=== PATIENT | male | born 1955 | race Two or more races ===

== ENCOUNTER 2024-08-14 02:56 | Emergency (ER) | payer MEDICARE, SELFPAY ==
[2024-08-14 02:58] VITALS: BP 132/77; PULSE 56; RESP 17; TEMP 36.7; O2SAT 96; BMI 31.2
--- NOTE | 2024-08-14 03:05 | EKG_ITS ---
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
--- NOTE | 2024-08-14 03:22 | XR_ITS ---
Examination: PA chest single view TECHNIQUE: Upright PA chest single view Date and time: 11/14/2024 0536 hours INDICATIONS: Shortness of breath today. FINDINGS: Normal heart size No pneumonia or pulmonary edema Epidural pain leads IMPRESSION: No active disease
--- NOTE | 2024-08-14 03:24 | PD.EDSOB ---
ED SOB =RME/HPI General Chief Complaint: Shortness of Breath/Dyspnea Stated Complaint: DIFF BREATHING Time Seen by Provider: 08/14/24 03:22 Arrival date/time: 08/14/24 02:56 68M with history of anxiety and BPH presents to ED with 2 days of intermittent CP and SOB. Patient denies URI symptoms. Patient has no current symptoms. Limitations: no limitations Related Data Home Medications ?Medication ?Instructions ?Recorded ?Confirmed Cetirizine HCl (Allergy Relief) 10 mg PO QDAY ##0 05/24/15 03/13/19 Fluticasone Propionate NASAL * 1 spry NASAL BID #0 spry 05/24/15 03/13/19 (FLONASE *) finasteride 5 mg tablet (Proscar) 5 mg PO QDAY #0 tabs 05/24/15 03/13/19 pentosan polysulfate sodium 100 mg 100 mg PO TID #0 caps 05/24/15 03/13/19 capsule (Elmiron) tamsulosin 0.4 mg capsule (Flomax) 0.4 mg PO QDAY ##0 05/24/15 03/13/19 tramadol 50 mg tablet (Ultram) 50 mg PO Q4HR PRN PAIN #0 tabs 05/24/15 03/13/19 Fish Oil (OTC) * 1 cap PO QDAY #0 caps 05/25/15 03/13/19 MANUP 1 tab PO QDAY ##0 05/25/15 03/13/19 cholecalciferol (vitamin D3) 50 2,000 unit PO QDAY #0 caps 05/25/15 03/13/19 mcg (2,000 unit) capsule (Vitamin D3) Previous Rx's ?Medication ?Instructions ?Recorded lorazepam 1 mg tablet (Ativan) 1 mg PO BID PRN anxiety #20 tabs 03/13/19 diclofenac sodium 75 mg 75 mg PO BID PRN pain #60 tabs 02/19/21 tablet,delayed release meloxicam 7.5 mg tablet 7.5 mg PO QDAY #10 tabs 09/20/21 Allergies Allergy/AdvReac Type Severity Reaction Status Date / Time No Known Allergies Allergy Verified 09/20/21 09:40 Review of Systems Review of Systems Systems Reviewed: All systems reviewed, normal except as documented Constitutional Constitutional: Reports system reviewed and no additional complaints, except as documented, Denies fever(s) and Denies headache(s) ENT Ears, Nose, Mouth, and Throat: Denies disequilibrium and Denies headache(s) Cardiovascular Cardiovascular: Reports system reviewed and no additional complaints, except as documented, Reports as per HPI, Reports chest pain and Reports dyspnea Respiratory Respiratory: Reports system reviewed and no additional complaints, except as documented, Denies cough and Reports dyspnea Gastrointestinal Gastrointestinal: Reports system reviewed and no additional complaints, except as documented, Denies abdominal pain, Denies nausea and Denies vomiting Neurologic Neurologic: Reports system reviewed and no additional complaints, except as documented, Denies confusion, Denies disequilibrium and Denies headache(s) Psychiatric Psychiatric: Denies confusion Past Medical History Past Medical History CARDIAC: Negative Congestive Heart Failure RESPIRATORY: Negative Chronic Obstructive Pulmonary Disease (COPD) GENITOURINARY: Positive Benign Prostatic Hyperplasia; Negative Renal Disease ENDOCRINE: Negative Diabetes Mellitus Type 1 or Diabetes Mellitus Type 2 PSYCHO/SOCIAL: Positive Anxiety Social History SMOKING STATUS: Never smoker SUBSTANCE USE: does not use ED Exam General Limitations: Present no limitations General appearance: Present alert, in no apparent distress and anxious Head Head exam: Present atraumatic Eye Eye exam: Present normal appearance, PERRL and EOMI ENT ENT exam: Present normal exam, normal oropharynx and mucous membranes moist Neck Neck exam: Present normal inspection, full ROM and trachea midline Chest Chest inspection: Present normal inspection and symmetric chest wall rise Respiratory Respiratory exam: Present normal lung sounds bilaterally Cardiovascular Cardiovascular exam: Present regular rate, normal rhythm and normal heart sounds Abdominal Exam Abdominal exam: Present soft and normal bowel sounds Extremities Exam Extremities exam: Present normal inspection and full ROM Back Exam Back exam: Present normal inspection and full ROM Neurological Exam Neurological exam: Present alert, oriented X3 and CN II-XII intact Psychiatric Psychiatric exam: Present normal affect and normal mood Skin Skin exam: Present warm, dry, intact and normal color Course Quality Measures none Orders Category Date Time Status EKG (ED ONLY) *Do not use* NOW Care 08/14/24 03:05 Completed EKG (ED Only) Stat Exams 08/14/24 03:05 Draft XR chest 1V portable Stat Exams 08/14/24 03:22 Taken B-Type Natriuretic Peptide Stat Lab 08/14/24 03:39 Completed CBC Stat Lab 08/14/24 03:39 Completed Comprehensive Metabolic Panel Stat Lab 08/14/24 03:39 Completed Troponin I Stat Lab 08/14/24 03:39 Completed Vital Signs Vital signs: Vital Signs Temperature 98.0 F 08/14/24 02:58 Pulse Rate 56 L 08/14/24 02:58 Respiratory Rate 17 08/14/24 02:58 Blood Pressure 132/77 H 08/14/24 02:58 Pulse Oximetry (%) 96 08/14/24 02:58 Oxygen Delivery Method Room Air 08/14/24 02:58 O2 at 96% on RA and WNLs Shortness of Breath / Dyspnea MDM Narrative MDM Narrative:: 68M with history of anxiety and BPH presents to ED with 2 days of intermittent CP and SOB. Patient denies URI symptoms. Patient has no current symptoms. Physical exam reveals clear lungs. Normal WOB. RRR. Patient is afebrile, alert, but anxious. EKG is sinus aron of 57, which is consistent with previous EKG. Trop normal. BNP normal. No leukocytosis. CMP unremarkable. Wet CXR read unremarkable except for what appears to be ashley in the esophagus, pending official report. This anomaly was not seen on CXR from 2 years ago. Patient denies any procedure/surgery. states possibly done for high cholesterol, but she's not sure. Return Agent [place] given. Symptoms likely due to anxiety. Patient data External records reviewed:: [facility] previous records Clinical information provided by:: patient Social determinants that could affect healthcare access:: mental health Patient has the following chronic illnesses:: anxiety and BPH How is presenting disease/condition affected by chronic disease/condition?: exacerbated by Evaluation data The following diagnostics were reviewed and interpreted by me:: lab results, radiology exam(s) and EKG tracing(s) Lab and/or radiology exams considered but not ordered:: ordered Interpretation Summary: above Medications / Prescriptions Medications or Prescriptions considered but not ordered:: not ordered Medication administrations:: n/a Consultations Consultation(s) initiated? (list below): No Diagnosis Shortness of Breath Differential Diagnosis: acute exacerbation of chronic obstructive airways disease, congestive heart failure, community acquired pneumonia, asthma with exacerbation, pulmonary embolism and other (anxiety) Most likely diagnosis given after review of the tests above:: anxiety Admission Indicated Admission indicated?: not indicated Admission Request Was there a request for admission?: No Disposition Plan Disposition Plan: Discharge Discharge Attestation Discharge Attestation: The patient and all family members were given an opportunity to ask questions and understood the discharge instructions. Discharge instructions specifically effects, indications for sooner follow up or return to the emergency department, and the expected course of current diagnosis. Patient condition: Stable Discharge Plan Plan Patient Disposition: HOME (Self Care) Discharge Disposition comment: Stable Prescriptions/Referrals Prescriptions/Med Rec: No Action Elmiron 100 MG capsule 100 mg PO TID Qty: 0 tramadol [Ultram] 50 MG tablet 50 mg PO Q4HR PRN (Reason: PAIN) Qty: 0 Patient Comments: FOR PAIN, NOT TO EXCEED 8 TABS IN 24 HRS tamsulosin [Flomax] 0.4 MG capsule,extended release 24hr 0.4 mg PO QDAY Qty: 0 finasteride [Proscar] 5 MG tablet 5 mg PO QDAY Qty: 0 Cetirizine HCl (Allergy Relief) 10 MG capsule 10 mg PO QDAY Qty: 0 Fluticasone Propionate NASAL * (FLONASE *) 160 SPRAY/BTL SPRAY 1 spry NASAL BID Qty: 0 cholecalciferol (vitamin D3) [Vitamin D3] 2,000 UNIT capsule 2,000 unit PO QDAY Qty: 0 Fish Oil (OTC) * 1 CAP capsule 1 cap PO QDAY Qty: 0 MANUP 1 tab PO QDAY Qty: 0 diclofenac sodium 75 mg tablet,delayed release (DR/EC) 75 mg PO BID PRN (Reason: pain) Qty: 60 0RF lorazepam [Ativan] 1 mg tablet 1 mg PO BID PRN (Reason: anxiety) Qty: 20 0RF meloxicam 7.5 mg tablet 7.5 mg PO QDAY Qty: 10 0RF Referrals: Tayo Virk [Primary Care Provider] - In 1 week Problem List Clinical Impression: Anxiety Patient/Caregiver Discharge Instructions Education Materials: Your Body's Response to Anxiety Additional Instructions: Please follow-up with PCP within 24-48 hours and return immediately if symptoms worsen. Print Language: Urdu Stand Alone Forms: Patient Portal Info Letter EYAD/LESLIE Supervising Physician EYAD/LESLIE Supervising Physician: Dr. Martínez
[2024-08-14 03:52] LABS: Basophils # (Auto) 0.1 Thou/mm3 (0.0-0.2); Basophils % (Auto) 1 % (0-2.5); Eosinophils # (Auto) 0.2 Thou/mm3 (0.0-0.5); Eosinophils % (Auto) 4 % (0-10); Hematocrit 40.7 % (41.0-53.0); Hemoglobin 14.4 g/dL (13.5-16.0); Immature Granulocytes % (Auto) 0 % (0-0); Immature Granulocytes Auto 0.01 Thou/mm3 (0.00-0.00); Lymphocytes # (Auto) 2.3 Thou/mm3 (1.0-4.8); Lymphocytes % (Auto) 41 % (10-50); Mean Corpuscular HGB Conc 35.4 g/dl (31.0-37.0); Mean Corpuscular Hemoglobin 31.8 pg (25.0-35.0); Mean Corpuscular Volume 90 fL (80-100); Monocytes # (Auto) 0.6 Thou/mm3 (0.0-0.8); Monocytes % (Auto) 11 % (0-12); Neutrophils # (Auto) 2.4 Thou/mm3 (1.8-7.7); Neutrophils % (Auto) 43 % (37-80); Nucleated Red Blood Cell % 0 /100 WBC (0); Platelet Count 258 Thou/mm3 (140-440); RDW Standard Deviation 39.3 fL (35.1-43.9); Red Blood Count 4.53 Miln/mm3 (4.50-5.90); White Blood Count 5.7 Thou/mm3 (3.8-10.6)
[2024-08-14 04:21] LABS: B-Type Natriuretic Peptide < 20 pg/mL (0-100)
[2024-08-14 04:22] LABS: Alanine Aminotransferase 35 U/L (10-49); Albumin, Serum 4.5 gm/dL (3.4-4.8); Albumin/Globulin Ratio 1.6 (1.2-2.2); Alkaline Phosphatase 68 U/L (46-116); Anion Gap 8 (7-16); Aspartate Amino Transferase 26 U/L (0-34); BUN/Creatinine Ratio 14 Ratio (12-20); Bilirubin,Total 0.9 mg/dL (0.3-1.2); Blood Urea Nitrogen 11 mg/dL (9-23); Calcium 8.8 mg/dL (8.3-10.6); Calcium (Corrected) 8.8 mg/dL (8.5-10.1); Carbon Dioxide 27.6 mMol/L (20.0-31.0); Chloride 104 mMol/L (98-107); Creatinine (Component) 0.8 mg/dL (0.6-1.3); Estimated Creatinine Clearance 123.4 mL/min (>60); Globulin 2.9 gm/dL (2.3-3.5); Glucose 119 mg/dL (74-106); Osmolality,Calculated 279 (275-295); Potassium 4.1 mMol/L (3.4-5.1); Sodium 140 mMol/L (136-145); Total Protein 7.4 gm/dL (5.7-8.2); Troponin I < 0.002 ng/mL (0.0-0.045); eGFR > 60 See Note
== END 2024-08-14 04:49 | disposition home or self-care (01) ==
PROVIDERS: Physician Assistant; Emergency Provider Emergency Medicine; PCP Internal Medicine
DX: F41.9 Anxiety disorder, unspecified (principal); N40.0 Benign prostatic hyperplasia without lower urinary tract symptoms; R07.9 Chest pain, unspecified; R06.02 Shortness of breath
CPT/HCPCS: 36415; 71045; 80053; 83880; 84484; 85025; 93005; 99283